=== PATIENT | female | born 1970 | race Caucasian/White ===

== ENCOUNTER 2016-07-24 15:31 | Observation (INO) | payer OTHER ==
[~2016-07-24] VITALS: Ht 162.6 cm; Wt 97.6 kg
[2016-07-24] MEDS ORDERED: NITROGLYCERIN 0.4 MG SL PER TAB CHARGE SL STA ×2 (15:50→17:44)
[2016-07-24] MEDS ORDERED: SODIUM CHLORIDE 0.9% 1000ML 1,000 ML IV STA (15:57)
[2016-07-24] MEDS ORDERED: GI COCKTAIL PO STA (15:57)
[2016-07-24] MEDS ORDERED: ALUMINUM/MAGNESIUM SUSP 30 ML UDC ONE (16:04)
[2016-07-24] MEDS ORDERED: LIDOCAINE HCL 2% VISC SOLN 20 ML UDC ONE (16:04)
--- NOTE | 2016-07-24 16:04 | DIAGNOSTIC IMAGING REPORT ---
CHEST ONE VIEW PORTABLE CLINICAL HISTORY: Chest Pain dyspnea COMPARISON STUDY: No previous studies for comparison. FINDINGS: The bones soft tissues and hemidiaphragms are normal. The cardiomediastinal silhouette is normal. The lungs are clear. The pulmonary vasculature is normal. IMPRESSION: Negative chest. Electronically signed by: Ti Upton M.D. 07/24/2016 4:02 PM Dictated Date/Time: 07/24/2016 4:02 PM
[2016-07-24 16:06] LABS: BASO % 0.5 %; BASO ABS # 0.06 K/uL (0-0.2); EOS % 4.4 %; HEMATOCRIT 37.2 % (37-47); IG% 0.2 %; LYMPH % 21.6 %; LYMPH ABS # 2.48 K/uL (1.2-3.4); MEAN CELL VOLUME 67.4 fL (80-100); MEAN CORPUSCULAR HGB CONC 31.2 g/dl (32-36); MEAN PLATELET VOLUME 9.3 fL (7.4-10.4); MONO % 5.9 %; NEUT % 67.4 %; PLATELET COUNT 387 K/uL (130-400); RED BLOOD COUNT 5.52 M/uL (4.2-5.4); WHITE BLOOD COUNT 11.47 K/uL (4.8-10.8)
[2016-07-24] MEDS ORDERED: ALPRAZOLAM 0.5 MG TAB PO STA (16:10)
--- NOTE | 2016-07-24 16:11 | EMERGENCY ROOM VISIT NOTE ---
History First contact with patient: 15:39 Chief Complaint: CHEST PAIN Stated Complaint: CHEST PAIN History of Present Illness The patient is a 46 year old female with a past medical history of diabetes, hypertension, GERD, Lap Band surgery, and RI who presents to the Emergency Room with complaints of chest pain since 10:30 this morning. The patient woke up with the pain and was made worse after eating spaghetti this morning. The pain is 8/10 when eating but 2/10 when resting, substernal, sharp in nature, does not radiate, and not worsened with movement of palpation. The sensation feels like something is stuck in her throat and is not relieved with drinking. She states that she had a heart attack back in February 2015, says the pain was worse at that point in time and also radiated to the back. She does not recall why they diagnosed her with a heart attack, she did not have a heart catheterization, and was told by a multi care technician that she was fine. She says she is nauseous but that may be related to anxiety or her lap band that frequently makes her nauseous. She denies fever, headache, diarrhea, abdominal pain, shoulder pain, vomiting, numbness, or tingling. Review of Systems See HPI for pertinent positives and negatives. A total of ten systems were reviewed and were otherwise negative. Past Medical/Surgical History Medical Problems: (1) Diabetes mellitus (2) GERD (gastroesophageal reflux disease) Social History Smoking Status: Current Every Day Smoker Current/Historical Medications Scheduled Acyclovir (Acyclovir), 400 MG PO DAILY Amitriptyline Hcl (Elavil), 75 MG PO HS Atorvastatin (Lipitor), 40 MG PO QAM Cevimeline Hcl (Cevimeline Hcl), 30 MG PO TID Estrogens, Conjugated (Premarin), 0.625 MG PO QPM Fluticasone Propionate (Nasal) (Flonase Allergy Relief), 1 SPRAY NA DAILY Insulin Isophan/Regular (Humulin 70/30), 15 UNITS SC QAM Insulin Isophan/Regular (Humulin 70/30), 25 UNITS SC QPM Lorazepam (Ativan), 0.5 MG PO BID Pantoprazole (Protonix), 40 MG PO DAILY Scheduled PRN Hydrocodone/Acetaminophen 7.5MG/325MG ([place] 7.5MG/325MG), 1 TAB PO TID PRN for Pain Ondansetron Hcl (Zofran), 4 MG PO Q6 PRN for Nausea Promethazine (Phenergan Suppository), 12.[address] DAILY PRN for Nausea Allergies Coded Allergies: Celecoxib (Unverified Allergy, Unknown, SOB/CHEST PAIN, 07/24/16) Chlordiazepoxide (Unverified Allergy, Unknown, UNKNOWN, 07/24/16) Iodinated Diagnostic Agents (Unverified Allergy, Unknown, VOMIT, 07/24/16) Lisinopril (Unverified Allergy, Unknown, COUGH, 07/24/16) Physical Exam Vital Signs Date Time Temp Pulse Resp B/P Pulse Ox O2 Delivery O2 Flow Rate FiO2 07/24/16 18:01 103 18 125/83 93 Room Air 07/24/16 16:34 111 18 142/85 96 Room Air 07/24/16 16:20 108 18 148/87 97 Room Air 07/24/16 16:05 106 07/24/16 15:49 Room Air 07/24/16 15:35 36.9 116 20 139/83 97 Room Air Physical Exam GENERAL: Awake, alert, well-appearing, in mild distress HENT: Normocephalic, atraumatic. Oropharynx unremarkable. EYES: Normal conjunctiva. Sclera non-icteric. NECK: Supple. No nuchal rigidity. No JVD RESPIRATORY: Clear to auscultation. CARDIAC: Tachycardic, normal rhythm. Extremities warm and well perfused. Pulses equal. ABDOMEN: Soft, non-distended. No tenderness to palpation. No rebound or guarding. No masses. RECTAL: Deferred. MUSCULOSKELETAL: Chest examination reveals no tenderness. The back is symmetrical on inspection without obvious abnormality. There is no CVA tenderness to palpation. No joint edema. LOWER EXTREMITIES: Calves are equal size bilaterally and non-tender. No edema. No discoloration. NEURO: Normal sensorium. No sensory or motor deficits noted. SKIN: No rash or jaundice noted. Medical Decision & Procedures Laboratory Results 07/24/16 15:49 Red Blood Count 5.52, Mean Corpuscular Volume 67.4, Mean Corpuscular Hemoglobin 21.0, Mean Corpuscular Hemoglobin Concent 31.2, Mean Platelet Volume 9.3, Neutrophils (%) (Auto) 67.4, Lymphocytes (%) (Auto) 21.6, Monocytes (%) (Auto) 5.9, Eosinophils (%) (Auto) 4.4, Basophils (%) (Auto) 0.5, Neutrophils # (Auto) 7.72, Lymphocytes # (Auto) 2.48, Monocytes # (Auto) 0.68, Eosinophils # (Auto) 0.51, Basophils # (Auto) 0.06 07/24/16 15:49 Test 07/24/16 15:49 07/24/16 17:50 White Blood Count 11.47 K/uL (4.8-10.8) Red Blood Count 5.52 M/uL (4.2-5.4) Hemoglobin 11.6 g/dL (12.0-16.0) Hematocrit 37.2 % (37-47) Mean Corpuscular Volume 67.4 fL (80-100) Mean Corpuscular Hemoglobin 21.0 pg (25-34) Mean Corpuscular Hemoglobin Concent 31.2 g/dl (32-36) Platelet Count 387 K/uL (130-400) Mean Platelet Volume 9.3 fL (7.4-10.4) Neutrophils (%) (Auto) 67.4 % Lymphocytes (%) (Auto) 21.6 % Monocytes (%) (Auto) 5.9 % Eosinophils (%) (Auto) 4.4 % Basophils (%) (Auto) 0.5 % Neutrophils # (Auto) 7.72 K/uL (1.4-6.5) Lymphocytes # (Auto) 2.48 K/uL (1.2-3.4) Monocytes # (Auto) 0.68 K/uL (0.11-0.59) Eosinophils # (Auto) 0.51 K/uL (0-0.5) Basophils # (Auto) 0.06 K/uL (0-0.2) RDW Standard Deviation 35.0 fL (36.4-46.3) RDW Coefficient of Variation 14.4 % (11.5-14.5) Immature Granulocyte % (Auto) 0.2 % Immature Granulocyte # (Auto) 0.02 K/uL (0.00-0.02) Microcytosis PRESENT D-Dimer 450 ug/L FEU (0-500) Anion Gap 7.0 mmol/L (3-11) Estimated GFR () 104.8 Estimated GFR (Non- 90.4 BUN/Creatinine Ratio 10.9 (10-20) Calcium Level 8.3 mg/dl (8.5-10.1) Total Bilirubin 0.2 mg/dl (0.2-1) Direct Bilirubin < 0.1 mg/dl (0-0.2) Aspartate Amino Transf (AST/SGOT) 10 U/L (15-37) Alanine Aminotransferase (ALT/SGPT) 24 U/L (12-78) Alkaline Phosphatase 128 U/L (45-117) Total Protein 7.0 gm/dl (6.4-8.2) Albumin 3.7 gm/dl (3.4-5.0) Lipase 259 U/L (73-393) Bedside Troponin I 0.000 ng/ml (0-0.045) Medications Administered Medications (Trade) Dose Ordered Sig/Mark Route Start Time Stop Time Status Last Admin Dose Admin Nitroglycerin 0.4 mg 0.4 mg PRN STAT SL 07/24/16 15:50 07/24/16 15:53 DC 07/24/16 16:32 0.4 MG Sodium Chloride (Nss 1000ml) 1,000 ml @ 999 mls/hr Q1H1M STAT IV 07/24/16 15:57 07/24/16 16:57 DC 07/24/16 16:20 999 MLS/HR Al Hydroxide/Mg Hydroxide (Maalox Susp) 30 ml STK-MED ONCE .ROUTE 07/24/16 16:04 07/24/16 16:05 DC 07/24/16 16:11 30 ML Lidocaine HCl (Viscous Lidocaine 2% Soln) 20 ml STK-MED ONCE .ROUTE 07/24/16 16:04 07/24/16 16:05 DC 07/24/16 16:11 10 ML Alprazolam (Xanax Tab) 0.5 mg NOW STAT PO 07/24/16 16:10 07/24/16 16:12 DC 07/24/16 16:20 0.5 MG Nitroglycerin (Nitrostat Tab) 0.4 mg NOW STAT SL 07/24/16 17:44 07/24/16 17:46 DC 07/24/16 17:52 0.4 MG Medical Decision Patient is a 46 year old female that presents with chest pain. Etiologies such as cardiac ischemia, aortic dissection, pulmonary embolism, pneumonia, pneumothorax, musculoskeletal, infections, gastrointestinal, as well as others were entertained. Ordered EKG, Troponin, CBC, CMP, LFT, Lipase Gave patient Sublingual NG as well as a GI Cocktail Revisited the patient at 4:49 at which time she states that her chest pain has improved. Notified patient of negative Troponin and Chest Xray 5:35: Patient complains of continued chest pain so ordered another EKG and SL Nitroglycerin After giving patient SL NTG patient states that chest pain has improved from 4/ 10 at rest to 1/10, and pain with eating is now a 5/10 (was 8/10 prior) Due to continued chest pain developed in ED, improvement with NTG, and history of prior RI decided to consult inpatient medicine for admission. Discussed case with Dr. Borjas who agreed to see patient. Impression Primary Impression: Substernal chest pain Additional Impressions: History of myocardial infarction GERD (gastroesophageal reflux disease) Departure Information Dispostion Being Evaluated By Hospitalist Condition GOOD Patient Instructions My [facility] Problem Qualifiers Additional Impressions: GERD (gastroesophageal reflux disease) Esophagitis presence: esophagitis presence not specified Qualified Codes: K21.9 - Gastro-esophageal reflux disease without esophagitis
[2016-07-24 16:30] LABS: ALT/SGPT 24 U/L (12-78); AST/SGOT 10 U/L (15-37); BLOOD UREA NITROGEN 9 mg/dl (7-18); BUN/CREATININE RATIO 10.9 (10-20); CALCIUM 8.3 mg/dl (8.5-10.1); CARBON DIOXIDE 28 mmol/L (21-32); CHLORIDE 107 mmol/L (98-107); CREATININE 0.79 mg/dl (0.60-1.20); GLUCOSE 196 mg/dl (70-99); POTASSIUM 3.9 mmol/L (3.5-5.1); SODIUM 142 mmol/L (136-145)
[2016-07-24 16:35] LABS: ALKALINE PHOSPHATASE 128 U/L (45-117)
[2016-07-24] MEDS ORDERED: PROM5SUP2 PR (16:41)
[2016-07-24] MEDS ORDERED: ONDA4TAB46 PO (16:41)
[2016-07-24] MEDS ORDERED: PRM625 PO (16:41)
[2016-07-24] MEDS ORDERED: FLUT0.15 (16:41)
[2016-07-24] MEDS ORDERED: ATOR-24 PO (16:41)
[2016-07-24] MEDS ORDERED: AMT50 PO (16:41)
[2016-07-24] MEDS ORDERED: CEVI1CAP PO (16:41)
[2016-07-24] MEDS ORDERED: ZVR400 PO (16:41)
[2016-07-24] MEDS ORDERED: LORA-741 PO (16:41)
[2016-07-24] MEDS ORDERED: HYDR-3983 PO (16:41)
[2016-07-24] MEDS ORDERED: PANT40TA PO (16:41)
[2016-07-24] MEDS ORDERED: INSU1INJ SC ×2 (16:41)
[2016-07-24 17:14] LABS: COMPLETE YES; MICROCYTOSIS PRESENT
[2016-07-24] MEDS ORDERED: POLYETHYLENE (MIRALAX) 17 GM PACK PO PRN (19:00)
[2016-07-24] MEDS ORDERED: HYDROCODONE/ACETAMINOPHEN 7.5/325MG TAB PO PRN (19:00)
[2016-07-24] MEDS ORDERED: ONDANSETRON 4 MG TAB PO PRN (19:00)
[2016-07-24] MEDS ORDERED: ALUMINUM/MAGNESIUM/SIMETH (MAALOX MAX) 30 ML UDC PO PRN (19:00)
[2016-07-24] MEDS ORDERED: NITROGLYCERIN 0.4 MG SL PER TAB CHARGE SL PRN (19:00)
[2016-07-24] MEDS ORDERED: ONDANSETRON INJ 2 MG/ML 2 ML VIAL IV PRN (19:00)
[2016-07-24] MEDS ORDERED: ACETAMINOPHEN 325 MG TAB PO PRN (19:00)
[2016-07-24] MEDS ORDERED: MAGNESIUM HYDROXIDE SUSP 30 ML UDC PO PRN (19:00)
[2016-07-24] MEDS ORDERED: IV FLUIDS COMPLETED PRN (19:15)
[2016-07-24] MEDS ORDERED: CLOPIDOGREL BISULFATE 75 MG TAB PO ONE (19:30)
[2016-07-24] MEDS ORDERED: ACETAMINOPHEN 325 MG TAB ONE (19:41)
[2016-07-24] MEDS ORDERED: IBUPROFEN 600 MG TAB ONE (19:41)
--- NOTE | 2016-07-24 19:41 | History and Physical ---
History & Physical Date & Time of Service: July 24, 2016 at 19:19 Chief Complaint: Chest Pain Primary Care Physician: Susana Neil M.D. History of Present Illness Source: patient 46 y/o f Hx DC of undetermined etiology, IDDM, HPL. Pt woke up with central CP exacerbated by eating. She describes accompanying SOB and nausea. Denies vomiting, diaphoresis, lightheadedness or radiation of the pain. States that the pain has been increasing in severity over the past few hours. Initial CP was reveived with NTG in the ER. She had 2 sets of enzymes and a normal EKG. The ER attending had intended to discharge her from the ER however she developed recurrence of CP prior to DC. The CP was not related to ingestion of food at that time. Past Medical/Surgical History Medical Problems: (1) Diabetes mellitus Status: Chronic (2) GERD (gastroesophageal reflux disease) Status: Chronic 3) Chronic pain syndrome 4) Anxiety 5) Pt states that she had an episode of CP in 2016 and presented to the ER at [place]. She was told later during a pre-op eval by a office messenger helper that she had had a minor DC at the time which was missed in the ER. She has not undergone a cath and does not know if she has a hitroy of coronary disease. 6) Partial hysterectomy 2010 due to menorrhagia 7) Thalassemia minor 8) Gastric sleeve surgery 05/22 - 30 lb weight loss since then Family History Father MVA Mother alive - thalassemia minor Social History Smoking Status: Current Every Day Smoker Allergies Coded Allergies: Celecoxib (Unverified Allergy, Unknown, SOB/CHEST PAIN, 07/24/16) Chlordiazepoxide (Unverified Allergy, Unknown, UNKNOWN, 07/24/16) Iodinated Diagnostic Agents (Unverified Allergy, Unknown, VOMIT, 07/24/16) Lisinopril (Unverified Allergy, Unknown, COUGH, 07/24/16) Home Medications Scheduled Acyclovir (Acyclovir), 400 MG PO DAILY Amitriptyline Hcl (Elavil), 75 MG PO HS Atorvastatin (Lipitor), 40 MG PO QAM Cevimeline Hcl (Cevimeline Hcl), 30 MG PO TID Estrogens, Conjugated (Premarin), 0.625 MG PO QPM Fluticasone Propionate (Nasal) (Flonase Allergy Relief), 1 SPRAY NA DAILY Insulin Isophan/Regular (Humulin 70/30), 15 UNITS SC QAM Insulin Isophan/Regular (Humulin 70/30), 25 UNITS SC QPM Lorazepam (Ativan), 0.5 MG PO BID Pantoprazole (Protonix), 40 MG PO DAILY Scheduled PRN Hydrocodone/Acetaminophen 7.5MG/325MG ([place] 7.5MG/325MG), 1 TAB PO TID PRN for Pain Ondansetron Hcl (Zofran), 4 MG PO Q6 PRN for Nausea Promethazine (Phenergan Suppository), 12.5 MG SD DAILY PRN for Nausea Review of Systems Constitutional: No chills, No fever, No sweats Eyes: No eye pain, No worsening of vision ENT: No hearing loss, No nasal symptoms, No unusual epistaxis Respiratory: + dyspnea at rest, + dyspnea on exertion, + shortness of breath, No cough, No sputum, No wheezing Cardiovascular: + chest pain, No PND, No orthopnea Abdomen: + nausea, No pain, No vomiting Musculoskeletal: No joint pain, No muscle pain Genitourinary - Female: No dysuria, No urinary frequency, No urinary urgency Neurologic: No memory loss, No paralysis, No weakness Psychiatric: No depression symptoms Endocrine: No fatigue Hematologic / Lymphatic: No abnormal bleeding/bruising Integumentary: No rash Allergic / Immunologic: No environmental allergies Physical Exam Vital Signs Date Time Temp Pulse Resp B/P Pulse Ox O2 Delivery O2 Flow Rate FiO2 07/24/16 18:01 103 18 125/83 93 Room Air 07/24/16 16:34 111 18 142/85 96 Room Air 07/24/16 16:20 108 18 148/87 97 Room Air 07/24/16 16:05 106 07/24/16 15:49 Room Air 07/24/16 15:35 36.9 116 20 139/83 97 Room Air General Appearance: WD/WN, no apparent distress Head: normocephalic, atraumatic Eyes: normal inspection, PERRL, EOMI ENT: normal ENT inspection, pharynx normal Neck: supple, no JVD Respiratory/Chest: chest non-tender, lungs clear, normal breath sounds, no respiratory distress, no accessory muscle use Cardiovascular: regular rate, rhythm, no edema, no gallop, no JVD Abdomen/GI: normal bowel sounds, non tender, soft Back: normal inspection, no CVA tenderness, no muscle spasm, normal range of motion Extremities/Musculoskelatal: normal inspection, no calf tenderness, normal capillary refill, no pedal edema, normal range of motion 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 as tested, no motor/sensory deficits, alert Skin: normal color, warm/dry, no rash Diagnostics Laboratory Results Results Past 24 Hours Test 07/24/16 15:49 07/24/16 15:53 07/24/16 17:50 Range/Units White Blood Count 11.47 4.8-10.8 K/uL Red Blood Count 5.52 4.2-5.4 M/uL Hemoglobin 11.6 12.0-16.0 g/dL Hematocrit 37.2 37-47 % Mean Corpuscular Volume 67.4 80-100 fL Mean Corpuscular Hemoglobin 21.0 25-34 pg Mean Corpuscular Hemoglobin Concent 31.2 32-36 g/dl Platelet Count 387 130-400 K/uL Mean Platelet Volume 9.3 7.4-10.4 fL Neutrophils (%) (Auto) 67.4 % Lymphocytes (%) (Auto) 21.6 % Monocytes (%) (Auto) 5.9 % Eosinophils (%) (Auto) 4.4 % Basophils (%) (Auto) 0.5 % Neutrophils # (Auto) 7.72 1.4-6.5 K/uL Lymphocytes # (Auto) 2.48 1.2-3.4 K/uL Monocytes # (Auto) 0.68 0.11-0.59 K/uL Eosinophils # (Auto) 0.51 0-0.5 K/uL Basophils # (Auto) 0.06 0-0.2 K/uL RDW Standard Deviation 35.0 36.4-46.3 fL RDW Coefficient of Variation 14.4 11.5-14.5 % Immature Granulocyte % (Auto) 0.2 % Immature Granulocyte # (Auto) 0.02 0.00-0.02 K/uL Microcytosis PRESENT D-Dimer 450 0-500 ug/L FEU Sodium Level 142 136-145 mmol/L Potassium Level 3.9 3.5-5.1 mmol/L Chloride Level 107 98-107 mmol/L Carbon Dioxide Level 28 21-32 mmol/L Anion Gap 7.0 3-11 mmol/L Blood Urea Nitrogen 9 7-18 mg/dl Creatinine 0.79 0.60-1.20 mg/dl Estimated GFR () 104.8 Estimated GFR (Non- 90.4 BUN/Creatinine Ratio 10.9 10-20 Random Glucose 196 70-99 mg/dl Calcium Level 8.3 8.5-10.1 mg/dl Total Bilirubin 0.2 0.2-1 mg/dl Direct Bilirubin < 0.1 0-0.2 mg/dl Aspartate Amino Transf (AST/SGOT) 10 15-37 U/L Alanine Aminotransferase (ALT/SGPT) 24 12-78 U/L Alkaline Phosphatase 128 45-117 U/L Total Protein 7.0 6.4-8.2 gm/dl Albumin 3.7 3.4-5.0 gm/dl Lipase 259 73-393 U/L Bedside Troponin I 0.000 0.000 0-0.045 ng/ml CXR normal Normal EKG Impression Assessment and Plan 46 y/o f Hx DC of undetermined etiology, IDDM, HPL. Pt woke up with central CP exacerbated by eating. She describes accompanying SOB and nausea. Denies vomiting, diaphoresis, lightheadedness or radiation of the pain. States that the pain has been increasing in severity over the past few hours. Initial CP was reveived with NTG in the ER. She had 2 sets of enzymes and a normal EKG. The ER attending had intended to discharge her from the ER however she developed recurrence of CP prior to DC. The CP was not related to ingestion of food at that time. 1) CP - apparent history of previous DC - pain relieved by NTG 3rd troponin pending - cont Statin - can likely schedule for outpt stress with her MD in [place] if ruled out - provided with Plavix daily as she may have an ASA sensitivity 2) DM - sliding scale provided 3) GERD - PPi ordered Full code - Lovenox prophylaxis Total time for this admit including review of labs, meds, EKG - discussion with ER attending and pt 30 min Level of Care Telemetry Resuscitation Status FULL RESUSCITATION VTE Prophylaxis VTE Risk Assessment Done? Y/N: Yes Risk Level: Low Given or contraindicated: Enoxaparin (Lovenox)SQ
[2016-07-24 20:24] VITALS: BP 151/93; PULSE 95; TEMP 36.1; O2SAT 98
[2016-07-24] MEDS: PATIENT'S HEIGHT AND/OR WEIGHT NEEDED SCH ×2 (20:50→22:36)
[2016-07-24] MEDS ORDERED: GLUCOSE 40% GEL 15 GM TUBE PO PRN (21:00)
[2016-07-24] MEDS ORDERED: DEXTROSE 50% 50 ML SYR IV PRN (21:00)
[2016-07-24] MEDS: INSULIN ASPART 100 UNITS/ML 3 ML PEN SC SCH (21:00)
[2016-07-24] MEDS ORDERED: GLUCAGON FOR INJ 1 MG VIAL SQ PRN (21:00)
[2016-07-24] MEDS ORDERED: GLUCOSE 10 TABS/TUBE PO PRN (21:00)
[2016-07-24] MEDS ORDERED: ESTROGENS, CONJUGATED 0.625 MG TAB PO SCH (21:00)
[2016-07-24] MEDS ORDERED: AMITRIPTYLINE HCL 25 MG TAB PO SCH (21:00)
[2016-07-24] MEDS: LORAZEPAM 0.5 MG TAB PO SCH (21:10)
[2016-07-24] MEDS: CEVIMELINE~ORDER AWAITING ACTION SCH (21:38)
[2016-07-24 21:59] VITALS: BP 151/93; PULSE 95; TEMP 36.1; Ht 162.6 cm; Wt 97.6 kg
--- NOTE | 2016-07-24 22:09 | EMERGENCY ROOM VISIT NOTE ---
History Report prepared by Odalis: Adelia Golden Under the Supervision of: Dr. Jae Leon M.D. First contact with patient: 15:39 Chief Complaint: ABDOMINAL PAIN Stated Complaint: CHEST PAIN History of Present Illness The patient is a 46 year old female who presents to the Emergency Room with complaints of constant low sternal pain for the past 5 hours. Her pain started this morning while she was eating spaghetti with red sauce. Her pain is constant at a 2/10 in severity, but significantly worsens with eating. When she eats her pain is an 8/10 and she describes it as sharp. She notes that she feels like something is stuck in her throat when she is trying to swallow. The patient denies her pain radiating anywhere. She also denies lightheadedness, numbness, tingling, fever, constipation, diarrhea, and shortness of breath. She was told that she had an CT at [facility] in February 2015. She is not sure why she was told this, but her computational biologist has told her that she was fine. She has never had a cardiac catheterization or any stents placed. 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 A total of 10 systems reviewed and were otherwise negative. Past Medical & Surgical Medical Problems: (1) Diabetes mellitus (2) GERD (gastroesophageal reflux disease) Family History No pertinent history stated. Social History Smoking Status: Current Every Day Smoker Current/Historical Medications Scheduled Acyclovir (Acyclovir), 400 MG PO DAILY Amitriptyline Hcl (Elavil), 75 MG PO HS Atorvastatin (Lipitor), 40 MG PO QAM Cevimeline Hcl (Cevimeline Hcl), 30 MG PO TID Estrogens, Conjugated (Premarin), 0.625 MG PO QPM Fluticasone Propionate (Nasal) (Flonase Allergy Relief), 1 SPRAY NA DAILY Insulin Isophan/Regular (Humulin 70/30), 15 UNITS SC QAM Insulin Isophan/Regular (Humulin 70/30), 25 UNITS SC QPM Lorazepam (Ativan), 0.5 MG PO BID Pantoprazole (Protonix), 40 MG PO DAILY Scheduled PRN Hydrocodone/Acetaminophen 7.5MG/325MG ([place] 7.5MG/325MG), 1 TAB PO TID PRN for Pain Ondansetron Hcl (Zofran), 4 MG PO Q6 PRN for Nausea Promethazine (Phenergan Suppository), 12.5 MG [place] DAILY PRN for Nausea Allergies Coded Allergies: Celecoxib (Verified Allergy, Unknown, SOB/CHEST PAIN, 07/24/16) Chlordiazepoxide (Verified Allergy, Unknown, UNKNOWN, 07/24/16) Iodinated Diagnostic Agents (Verified Adverse Reaction, Unknown, VOMIT, ) Lisinopril (Verified Adverse Reaction, Unknown, COUGH, 07/24/16) Physical Exam Vital Signs Date Time Temp Pulse Resp B/P Pulse Ox O2 Delivery O2 Flow Rate FiO2 07/24/16 18:01 103 18 125/83 93 Room Air 07/24/16 16:34 111 18 142/85 96 Room Air 07/24/16 16:20 108 18 148/87 97 Room Air 07/24/16 16:05 106 07/24/16 15:49 Room Air 07/24/16 15:35 36.9 116 20 139/83 97 Room Air Physical Exam GENERAL: Patient is mildly anxious appearing and in no acute distress. HEENT: No acute trauma, normocephalic atraumatic, mucous membranes moist, no nasal congestion, no scleral icterus. NECK: No stridor, no adenopathy, no meningismus, trachea is midline. LUNGS: No dyspnea. Clear to auscultation and equal bilaterally. No wheeze, no rhonchi. HEART: Mildly tachycardic rate and regular rhythm. No murmurs, rubs, gallops appreciated. ABDOMEN: Soft, nontender, bowel sounds positive, no masses appreciated, no peritonitis. BACK: No midline tenderness, no CVA tenderness EXTREMITIES: Normal motion all extremities, no cyanosis, no edema. NEUROLOGIC: Alert and oriented, no acute motor or sensory deficits, no focal weakness, cranial nerves grossly intact. SKIN: No rash, no jaundice, no diaphoresis. Medical Decision & Procedures ER Provider Diagnostic Interpretation: Radiology results and stated below per my review and radiologist interpretation: CHEST ONE VIEW PORTABLE CLINICAL HISTORY: Chest Pain dyspnea COMPARISON STUDY: No previous studies for comparison. FINDINGS: The bones soft tissues and hemidiaphragms are normal. The cardiomediastinal silhouette is normal. The lungs are clear. The pulmonary vasculature is normal. IMPRESSION: Negative chest. Electronically signed by: Ti Upton M.D. 07/24/2016 4:02 PM Dictated Date/Time: 07/24/2016 4:02 PM Laboratory Results 07/24/16 15:49 Red Blood Count 5.52, Mean Corpuscular Volume 67.4, Mean Corpuscular Hemoglobin 21.0, Mean Corpuscular Hemoglobin Concent 31.2, Mean Platelet Volume 9.3, Neutrophils (%) (Auto) 67.4, Lymphocytes (%) (Auto) 21.6, Monocytes (%) (Auto) 5.9, Eosinophils (%) (Auto) 4.4, Basophils (%) (Auto) 0.5, Neutrophils # (Auto) 7.72, Lymphocytes # (Auto) 2.48, Monocytes # (Auto) 0.68, Eosinophils # (Auto) 0.51, Basophils # (Auto) 0.06 07/24/16 15:49 Test 07/24/16 15:49 07/24/16 17:50 White Blood Count 11.47 K/uL (4.8-10.8) Red Blood Count 5.52 M/uL (4.2-5.4) Hemoglobin 11.6 g/dL (12.0-16.0) Hematocrit 37.2 % (37-47) Mean Corpuscular Volume 67.4 fL (80-100) Mean Corpuscular Hemoglobin 21.0 pg (25-34) Mean Corpuscular Hemoglobin Concent 31.2 g/dl (32-36) Platelet Count 387 K/uL (130-400) Mean Platelet Volume 9.3 fL (7.4-10.4) Neutrophils (%) (Auto) 67.4 % Lymphocytes (%) (Auto) 21.6 % Monocytes (%) (Auto) 5.9 % Eosinophils (%) (Auto) 4.4 % Basophils (%) (Auto) 0.5 % Neutrophils # (Auto) 7.72 K/uL (1.4-6.5) Lymphocytes # (Auto) 2.48 K/uL (1.2-3.4) Monocytes # (Auto) 0.68 K/uL (0.11-0.59) Eosinophils # (Auto) 0.51 K/uL (0-0.5) Basophils # (Auto) 0.06 K/uL (0-0.2) RDW Standard Deviation 35.0 fL (36.4-46.3) RDW Coefficient of Variation 14.4 % (11.5-14.5) Immature Granulocyte % (Auto) 0.2 % Immature Granulocyte # (Auto) 0.02 K/uL (0.00-0.02) Microcytosis PRESENT D-Dimer 450 ug/L FEU (0-500) Anion Gap 7.0 mmol/L (3-11) Estimated GFR () 104.8 Estimated GFR (Non- 90.4 BUN/Creatinine Ratio 10.9 (10-20) Calcium Level 8.3 mg/dl (8.5-10.1) Total Bilirubin 0.2 mg/dl (0.2-1) Direct Bilirubin < 0.1 mg/dl (0-0.2) Aspartate Amino Transf (AST/SGOT) 10 U/L (15-37) Alanine Aminotransferase (ALT/SGPT) 24 U/L (12-78) Alkaline Phosphatase 128 U/L (45-117) Total Protein 7.0 gm/dl (6.4-8.2) Albumin 3.7 gm/dl (3.4-5.0) Lipase 259 U/L (73-393) Bedside Troponin I 0.000 ng/ml (0-0.045) Laboratory results as reviewed by me. Medications Administered Medications (Trade) Dose Ordered Sig/Mark Route Start Time Stop Time Status Last Admin Dose Admin Nitroglycerin 0.4 mg 0.4 mg PRN STAT SL 07/24/16 15:50 07/24/16 15:53 DC 07/24/16 16:32 0.4 MG Sodium Chloride (Nss 1000ml) 1,000 ml @ 999 mls/hr Q1H1M STAT IV 07/24/16 15:57 07/24/16 16:57 DC 07/24/16 16:20 999 MLS/HR Al Hydroxide/Mg Hydroxide (Maalox Susp) 30 ml STK-MED ONCE .ROUTE 07/24/16 16:04 07/24/16 16:05 DC 07/24/16 16:11 30 ML Lidocaine HCl (Viscous Lidocaine 2% Soln) 20 ml STK-MED ONCE .ROUTE 07/24/16 16:04 07/24/16 16:05 DC 07/24/16 16:11 10 ML Alprazolam (Xanax Tab) 0.5 mg NOW STAT PO 07/24/16 16:10 07/24/16 16:12 DC 07/24/16 16:20 0.5 MG Nitroglycerin (Nitrostat Tab) 0.4 mg NOW STAT SL 07/24/16 17:44 07/24/16 17:46 DC 07/24/16 17:52 0.4 MG ECG Indication: chest pain Rate (beats per minute): 112 Rhythm: sinus tachycardia Findings: no acute ischemic change, no ectopy ED Course 1539: The patient was evaluated in room B5. A complete history and physical exam was performed. 1550: Nitroglycerin 0.4 mg SL 1557: NSS 1000 ml @ 999 mls/hr IV, GI Cocktail 24 ml PO 1608: The patient is requesting Xanax. 1610: Xanax tab 0.5 mg PO 1644: I reassessed the patient. She is feeling better and resting comfortably. 1744: Nitroglycerin 0.4 mg SL 1755: I reassessed the patient at this time. She is feeling better and resting comfortably. I discussed the results and treatment plan with the patient. I answered all pertaining questions that she had. She expressed understanding and verbalized agreement. 1810: I spoke with Dr. Borjas. We discussed the patients case and the patient will be evaluated by the [facility] for further management. Medical Decision Differential: Cholecystitis, Gallbladder disfunction, Hepatic Disfunction, Gastritis/PUD, Pancreatitis, ACS, Aortic Pathology, amongst other pathologies entertained. 46 yr old female with DMII, HTN and she reports previous CT though denies previous CATH/Stenting. Notes similar pain to reported previous CT though without radiation to back. Resolved with SLNTG. Also given GI Cocktail given Gerd history. Initial EKG/Trop negative. She was monitored for 90 and repeat EKG/Trop done which were unremarkable. During repeat she developed return of pain and given SLNTG with resolution of pain again. Given recurrence of pain and her reported history I do not feel she meets criteria for outpatient work- up at this time and thus have asked hospitalist to evaluate for further treatment/management. Consults Time Called: 1801 Consulting Physician: Dr. Borjas Returned Call: [address] Borjas. We discussed the patients case and the patient will be evaluated by the [facility] for further management. Impression Primary Impression: Substernal chest pain Scribe Attestation The scribe's documentation has been prepared under my direction and personally reviewed by me in its entirety. I confirm that the note above accurately reflects all work, treatment, procedures, and medical decision making performed by me. Departure Information Dispostion Being Evaluated By Hospitalist Patient Instructions [facility]
[2016-07-24 22:26] LABS: INR 1.1 (0.9-1.1); PROTHROMBIN TIME (PATIENT) 11.3 SECONDS (9.0-12.0)
[2016-07-24 23:11] VITALS: BP 132/87; PULSE 97; TEMP 36.4; O2SAT 95
[2016-07-25] VITALS: O2SAT 97
[2016-07-25 04:00] VITALS: O2SAT 97
[2016-07-25 04:07] VITALS: BP 139/87; PULSE 94; TEMP 36.4; O2SAT 95
[2016-07-25] MEDS: INSULIN ASPART 100 UNITS/ML 3 ML PEN SC SCH (06:30)
[2016-07-25 07:43] VITALS: BP 146/98; PULSE 88; TEMP 36.3; O2SAT 98
[2016-07-25] MEDS: LORAZEPAM 0.5 MG TAB PO SCH (07:51)
[2016-07-25] MEDS ORDERED: INSULIN HUMAN 70% NPH/30% REGULAR SC SCH (08:00)
[2016-07-25] MEDS: CEVIMELINE~ORDER AWAITING ACTION SCH (08:00)
[2016-07-25] MEDS ORDERED: ENOXAPARIN 40 MG/0.4 ML SYR SC SCH (08:00)
[2016-07-25] MEDS ORDERED: FLUTICASONE PROPIONATE NA SPR 16 GM BTL SCH (09:00)
[2016-07-25] MEDS ORDERED: ACYCLOVIR 400 MG TAB PO SCH (09:00)
[2016-07-25] MEDS ORDERED: PANTOprazole SOD 40 MG TAB PO SCH (09:00)
[2016-07-25] MEDS ORDERED: ATORVASTATIN 20 MG TAB PO SCH (09:00)
[2016-07-25] MEDS ORDERED: CLOPIDOGREL BISULFATE 75 MG TAB PO SCH (09:00)
--- NOTE | 2016-07-25 09:51 | Discharge Instructions ---
Discharge Instructions Date of Service July 25, 2016. Admission Reason for Admission: Substernal Chest Pain Discharge Discharge Diagnosis / Problem: Chest pain Discharge Goals Goal(s): Decrease discomfort, Improve function, Diagnostic testing, Therapeutic intervention Activity Recommendations Activity Limitations: resume your previous activity (as tolerated) . Instructions / Follow-Up Instructions / Follow-Up You were admitted to the hospital for overnight observation after presenting to the ER with chest pain. You received a cardiac work up with included EKGs, cardiac monitoring on the telemetry unit, and serial cardiac enzymes. This work up was all normal. As you are no longer experiencing symptoms and your cardiac work up has been normal, you are now medically stable for discharge to home. Medications: *No changes have been made to your medications. Please continue your home medications as prescribed. Follow up: *Our Nurse Navigator will set you up with follow up cardiology, primary care, and gastroenterology appointments in the next week. Please be sure to make all of these appointments. Your golf teacher may decide to do a follow up stress test for further cardiac work up. Due to the nature of your chest pain, your director of global marketing may decide to do some work up as well as there may be some esophageal dysfunction that is contributing. Please seek medical attention if you experience fevers, chills, sweats, chest pain, shortness of breath, worsening nausea, vomiting, severe abdominal pain, lightheadedness, loss of consciousness, changes in vision, numbness or tingling. Current Hospital Diet Patient's current hospital diet: AHA Diet (Heart Healthy), Diabetes Type 2 Diet Discharge Diet Recommended Diet: AHA Diet (Heart Healthy), Diabetes Type 2 Diet Pending Studies Studies pending at discharge: no Medical Emergencies . Who to Call and When: Medical Emergencies: If at any time you feel your situation is an emergency, please call 911 immediately. . Non-Emergent Contact Non-Emergency issues call your: Primary Care Provider, Outside Sales Manager, Sheet Taker Call Non-Emergent contact if: you have a fever, your pain is not controlled, your pain is worsening, your pain is unusual for you, your pain is concerning you, you have any medication questions . Past History Medical & Surgical History: (1) Substernal chest pain . "Provider Documentation" section prepared by Leslye Maria. . VTE Core Measure Inpt VTE Proph given/why not?: Enoxaparin (Lovenox)SQ
[2016-07-25 10:10] VITALS: BP 146/98; PULSE 88; TEMP 36.3; O2SAT 98
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
== END 2016-07-25 11:43 | disposition home or self-care (01) ==
LOC: ENRESERVTM → ENRESERVDT → C.EDB 15:33 → C.MED 18:55
PROVIDERS: ADMIT Internal Medicine; ATTEND Internal Medicine
DX: R07.89 Other chest pain (principal); K21.9 Gastro-esophageal reflux disease without esophagitis; E10.9 Type 1 diabetes mellitus without complications; E78.5 Hyperlipidemia, unspecified; F41.9 Anxiety disorder, unspecified; G89.4 Chronic pain syndrome; I25.2 Old myocardial infarction; D56.3 Thalassemia minor; Z79.4 Long term (current) use of insulin; Z79.899 Other long term (current) drug therapy; F17.210 Nicotine dependence, cigarettes, uncomplicated

== ENCOUNTER 2016-08-08 10:37 | Emergency (ER) | payer OTHER ==
[~2016-08-08] VITALS: Ht 162.6 cm; Wt 97.0 kg
[~2016-08-08 10:37] MED LIST: AMT50 PO; ATOR-24 PO; CEVI1CAP PO; FLUT0.15; HYDR-3983 PO; INSU1INJ SC; LORA-741 PO; ONDA4TAB46 PO; PANT40TA PO; PRM625 PO; PROM5SUP2 PR; ZVR400 PO
[2016-08-08 10:44] VITALS: Ht 162.6 cm; Wt 97.0 kg
[2016-08-08] MEDS ORDERED: SODIUM CHLORIDE 0.9% 1000ML 1,000 ML IV STA ×2 (10:54→12:27)
--- NOTE | 2016-08-08 11:00 | EMERGENCY ROOM VISIT NOTE ---
History Report prepared by Odalis: Steve Wagner Under the Supervision of: Dr. Nay Sarkar D.O. First contact with patient: 10:41 Chief Complaint: SYNCOPE Stated Complaint: LEG CRAMPS/SYNCOPE History of Present Illness The patient is a 46 year old female who presents to the Emergency Room with an episode of syncope that occurred just prior to arrival. The patient was experiencing severe bilateral leg cramps this morning when she woke up. She experiences leg cramps commonly but they were much worse this morning. The patient felt fine when she went to bed last night. The patient stood up to stretch and became lightheaded, which is the last thing she remembers. Per significant other, the patient passed out, fell and hit her head between a wall and the door. The significant other notes that the patient's eyes were open but she was unresponsive. She was not convulsing. The patient remembers being in the ambulance en route to the ED but her memory was still hazy. Her leg cramps are now resolved. The patient currently has a headache. The patient has been having trouble taking a deep breath. She denies neck or back pain, and does not believe that she injured anything else when she fell. The patient has not been experiencing any recent fevers, chills, illness, blurry or double vision, nausea , chest pain, palpitations, leg swelling, numbness or tingling. The patient has never had an episode like this before. The patient was recently admitted to the hospital for chest pain. She is scheduled for a stress test next week. She is s/ p gastric sleeve surgery, and denies any complications. Source of History: patient Onset: just prior to arrival Position: other (global) Quality: other (syncope) Timing: resolved Associated Symptoms: + LOC, + headache, + SOB, No fevers, No chills, No neck pain, No chest pain, No nausea, No back pain, No weakness, No numbness Review of Systems See HPI for pertinent positives & negatives. A total of 10 systems reviewed and were otherwise negative. Past Medical & Surgical Medical Problems: (1) Diabetes mellitus (2) GERD (gastroesophageal reflux disease) Surgical Problems: (1) S/P laparoscopic sleeve gastrectomy Family History No pertinent family history Social History Smoking Status: Current Every Day Smoker Current/Historical Medications Scheduled Acyclovir (Acyclovir), 400 MG PO DAILY Amitriptyline Hcl (Elavil), 75 MG PO HS Atorvastatin (Lipitor), 40 MG PO QAM Cevimeline Hcl (Cevimeline Hcl), 30 MG PO TID Estrogens, Conjugated (Premarin), 0.625 MG PO QPM Fluticasone Propionate (Nasal) (Flonase Allergy Relief), 1 SPRAY NA DAILY Insulin Isophan/Regular (Humulin 70/30), 15 UNITS SC QAM Insulin Isophan/Regular (Humulin 70/30), 25 UNITS SC QPM Lorazepam (Ativan), 0.5 MG PO BID Pantoprazole (Protonix), 40 MG PO DAILY Scheduled PRN Hydrocodone/Acetaminophen 7.5MG/325MG ([place] 7.5MG/325MG), 1 TAB PO TID PRN for Pain Ondansetron Hcl (Zofran), 4 MG PO Q6 PRN for Nausea Promethazine (Phenergan Suppository), 12.5 MG IA DAILY PRN for Nausea Allergies Coded Allergies: Celecoxib (Verified Allergy, Unknown, SOB/CHEST PAIN, 08/08/16) Chlordiazepoxide (Verified Allergy, Unknown, UNKNOWN, 08/08/16) Iodinated Diagnostic Agents (Verified Adverse Reaction, Unknown, VOMIT, 08/08/16) Lisinopril (Verified Adverse Reaction, Unknown, COUGH, 08/08/16) Physical Exam Vital Signs Date Time Temp Pulse Resp B/P (MAP) Pulse Ox O2 Delivery O2 Flow Rate FiO2 08/08/16 14:44 36.7 79 18 124/99 97 08/08/16 14:33 79 18 124/99 97 Room Air 08/08/16 13:57 86 18 98 08/08/16 13:52 88 17 98 08/08/16 13:47 85 14 97 08/08/16 13:42 90 12 99 08/08/16 13:40 87 08/08/16 13:37 87 16 98 08/08/16 13:32 99 25 166/97 08/08/16 13:27 90 20 08/08/16 13:22 90 21 97 08/08/16 13:17 91 16 98 08/08/16 13:12 93 21 99 08/08/16 13:09 148/87 08/08/16 12:27 84 15 98 08/08/16 12:22 88 25 98 08/08/16 12:17 86 16 94 08/08/16 12:12 84 12 97 08/08/16 12:07 84 14 93 08/08/16 12:02 84 12 96 08/08/16 12:01 138/88 08/08/16 11:57 87 19 95 08/08/16 11:56 128/93 08/08/16 11:27 83 18 98 08/08/16 11:22 83 13 08/08/16 11:17 81 17 08/08/16 11:02 83 18 95 08/08/16 10:57 87 13 95 08/08/16 10:52 83 15 94 08/08/16 10:47 82 19 96 08/08/16 10:44 36.7 83 14 148/98 96 Room Air 08/08/16 10:43 84 08/08/16 10:42 85 23 94 08/08/16 10:40 148/98 Physical Exam GENERAL: alert, well appearing, well nourished, tearful on exam, non-toxic EYE EXAM: normal conjunctiva. OROPHARYNX: no exudate, no erythema, lips, buccal mucosa, and tongue normal and mucous membranes are moist NECK: supple, no nuchal rigidity, no adenopathy, non-tender LUNGS: Clear to auscultation. Normal chest wall mechanics HEART: no murmurs, S1 normal and S2 normal ABDOMEN: abdomen soft, non-tender, normo-active bowel sounds, no masses, no rebound or guarding. BACK: Back is symmetrical on inspection and there is no deformity, no midline tenderness, no CVA tenderness. SKIN: no rashes and no bruising UPPER EXTREMITIES: upper extremities are grossly normal. LOWER EXTREMITIES: No pitting edema. NEURO EXAM: Normal sensorium, cranial nerves II-XII grossly intact, normal speech, no gross weakness of arms, no gross weakness of legs. Gross sensation intact. Medical Decision & Procedures ER Provider Diagnostic Interpretation: Radiology results have been interpreted by the radiologist and reviewed by me. CT OF THE CERVICAL SPINE CLINICAL HISTORY: Neck pain status post trauma COMPARISON STUDY: No previous studies for comparison. CT DOSE: TECHNIQUE: CT scan of the cervical spine was performed from the skull base to the thoracic inlet. Images are reviewed in the axial, sagittal, and coronal planes. IV contrast was not administered for this examination. FINDINGS: There is a 9 mm left lobe thyroid nodule. There is no pneumothorax. There is a reversal of the normal cervical lordosis. No acute fractures or traumatic subluxations are visualized. There are multilevel degenerative changes IMPRESSION: No evidence of acute fracture or traumatic subluxation. Electronically signed by: Deonte Barajas M.D. 08/08/2016 11:56 AM Dictated Date/Time: 08/08/2016 11:52 AM CHEST ONE VIEW PORTABLE HISTORY: Syncope. Short of breath. COMPARISON: None. FINDINGS: The lungs are clear. Cardiac silhouette is normal in size. No pleural effusions. No pneumothorax. Mild S-shaped scoliosis. IMPRESSION: No acute process. Electronically signed by: Haroon Garnica M.D. 08/08/2016 11:15 AM Dictated Date/Time: 08/08/2016 11:[address] HEAD WITHOUT CONTRAST (CT) CLINICAL HISTORY: Syncope. Head trauma. Pain. COMPARISON STUDY: No previous studies for comparison. TECHNIQUE: Axial CT of the brain is performed from the vertex to the skull base. IV contrast was not administered for this examination. CT DOSE: 977.48 mGy.cm FINDINGS: No intra or extra-axial mass lesions are visualized. There is no CT evidence of acute cortical infarction. There is no evidence of midline shift. There is no acute hemorrhage. No calvarial fractures are visualized. There is no evidence of pathologic ventricular dilatation. There is no evidence of acute sinusitis IMPRESSION: Normal noncontrast head CT for age Electronically signed by: Deonte Barajas M.D. 08/08/2016 11:52 AM Dictated Date/Time: 08/08/2016 11:51 AM Laboratory Results 08/08/16 11:20 Red Blood Count 5.10, Mean Corpuscular Volume 67.1, Mean Corpuscular Hemoglobin 21.4, Mean Corpuscular Hemoglobin Concent 31.9, Mean Platelet Volume 8.9, Neutrophils (%) (Auto) 62.9, Lymphocytes (%) (Auto) 24.9, Monocytes (%) (Auto) 6.7, Eosinophils (%) (Auto) 4.7, Basophils (%) (Auto) 0.7, Neutrophils # (Auto) 4.81, Lymphocytes # (Auto) 1.90, Monocytes # (Auto) 0.51, Eosinophils # (Auto) 0.36, Basophils # (Auto) 0.05 08/08/16 11:20 Test 08/08/16 10:51 08/08/16 11:18 08/08/16 11:20 Bedside Glucose 158 mg/dl (70-90) Urine Color DK YELLOW Urine Appearance CLEAR (CLEAR) Urine pH 5.0 (4.5-7.5) Urine Specific [place] 1.034 (1.000-1.030) Urine Protein NEG (NEG) Urine Glucose (UA) NEG (NEG) Urine Ketones TRACE (NEG) Urine Occult Blood NEG (NEG) Urine Nitrite NEG (NEG) Urine Bilirubin NEG (NEG) Urine Urobilinogen NEG (NEG) Urine Leukocyte Esterase NEG (NEG) White Blood Count 7.64 K/uL (4.8-10.8) Red Blood Count 5.10 M/uL (4.2-5.4) Hemoglobin 10.9 g/dL (12.0-16.0) Hematocrit 34.2 % (37-47) Mean Corpuscular Volume 67.1 fL (80-100) Mean Corpuscular Hemoglobin 21.4 pg (25-34) Mean Corpuscular Hemoglobin Concent 31.9 g/dl (32-36) Platelet Count 319 K/uL (130-400) Mean Platelet Volume 8.9 fL (7.4-10.4) Neutrophils (%) (Auto) 62.9 % Lymphocytes (%) (Auto) 24.9 % Monocytes (%) (Auto) 6.7 % Eosinophils (%) (Auto) 4.7 % Basophils (%) (Auto) 0.7 % Neutrophils # (Auto) 4.81 K/uL (1.4-6.5) Lymphocytes # (Auto) 1.90 K/uL (1.2-3.4) Monocytes # (Auto) 0.51 K/uL (0.11-0.59) Eosinophils # (Auto) 0.36 K/uL (0-0.5) Basophils # (Auto) 0.05 K/uL (0-0.2) RDW Standard Deviation 35.1 fL (36.4-46.3) RDW Coefficient of Variation 14.3 % (11.5-14.5) Immature Granulocyte % (Auto) 0.1 % Immature Granulocyte # (Auto) 0.01 K/uL (0.00-0.02) Red Blood Cell Morphology Unremarkable Anion Gap 4.0 mmol/L (3-11) Est Creatinine Clear Calc Drug Dose 101.7 ml/min Estimated GFR () 104.8 Estimated GFR (Non- 90.4 BUN/Creatinine Ratio 19.8 (10-20) Calcium Level 8.4 mg/dl (8.5-10.1) Magnesium Level 2.0 mg/dl (1.8-2.4) Total Bilirubin 0.4 mg/dl (0.2-1) Aspartate Amino Transf (AST/SGOT) 15 U/L (15-37) Alanine Aminotransferase (ALT/SGPT) 20 U/L (12-78) Alkaline Phosphatase 120 U/L (45-117) Troponin I < 0.015 ng/ml (0-0.045) Total Protein 7.1 gm/dl (6.4-8.2) Albumin 3.8 gm/dl (3.4-5.0) Globulin 3.3 gm/dl (2.5-4.0) Albumin/Globulin Ratio 1.2 (0.9-2) Thyroid Stimulating Hormone (TSH) 3.790 uIu/ml (0.300-4.500) Human Chorionic Gonadotropin, Qual NEG (NEG) Laboratory results per my review. Medications Administered Medications (Trade) Dose Ordered Sig/Mark Route Start Time Stop Time Status Last Admin Dose Admin Sodium Chloride 1,000 ml @ 999 mls/hr Q1H1M STAT IV 08/08/16 10:54 08/08/16 11:54 DC 08/08/16 10:54 999 MLS/HR Sodium Chloride 1,000 ml @ 999 mls/hr Q1H1M STAT IV 08/08/16 12:27 08/08/16 13:27 DC 08/08/16 12:27 999 MLS/HR Acetaminophen (Tylenol Tab) 1,000 mg NOW STAT PO 08/08/16 13:10 08/08/16 13:12 DC 08/08/16 13:25 1,000 MG ECG Indication: syncope Rate (beats per minute): 83 Rhythm: sinus rhythm Findings: Q waves (V2 only), no acute ischemic change, other (normal axis, normal intervals) ED Course 1044: The patient was evaluated in room C10. A complete history and physical exam was performed. 1054: NSS 1000 ml @ 999 mls/hr. 1227: NSS 1000 ml @ 999 mls/hr. 1230: Reassessed the patient. She looks and feels better. Updated her on the results. 1310: Tylenol 1000 mg PO. 1426: The patient is feeling better. I discussed everything with her and she is comfortable with going home. Medical Decision Differential diagnosis: Etiologies such as vasovagal event, infection, hypoglycemia, electrolyte abnormalities, cardiac sources, intracerebral event, toxicologic, neurologic, as well as others were entertained. Medication Reconciliation: I attest that I have personally reviewed the patient' s current medication list. Blood pressure screening: Patient was found to have normal blood pressure on screening and does not require follow-up. Patient improved here, no recurrent syncope, unable to ambulate with a steady gait, tolerate by mouth at bedside. Given patient's history, patient observed for several hours. No dysrhythmias noted on telemetry and vital signs otherwise stable. Abs reassuring, and imaging negative for additional etiology or joint medic injury. Patient metastases to not drinking much water within the last 36 hours due to moving. Discussed that this may have been the reason for the worsening leg pain and cramps. Patient states she felt markedly improved following IV fluids here. Patient did have prodromal symptoms of lightheadedness prior to episode of syncope, likely orthostatic as well as vasovagal in nature given both dehydration as well as severe pain. Doubt acute cardiac etiology, and patient scheduled for close follow-up as an outpatient next week. Doubt acute hypoglycemia, no evidence of seizure-like activity, doubt medication reaction, or occult infection, doubt vascular etiology, CVA. Discussed mild anemia, and close follow-up with family doctor, doubt this is the acute reason for events this morning. Discussed with patient symptoms to watch and return for, need for close follow-up with family doctor, adequate hydration. Discussed that she has any new or recurrent symptoms, she is return to the ER immediately for additional evaluation and possible admission. Impression Primary Impression: Syncope Additional Impressions: CHI (closed head injury) Dehydration Scribe Attestation The scribe's documentation has been prepared under my direction and personally reviewed by me in its entirety. I confirm that the note above accurately reflects all work, treatment, procedures, and medical decision making performed by me. Departure Information Dispostion Home / Self-Care Referrals Siripala,Duminda S M.D. (PCP) Forms HOME CARE DOCUMENTATION FORM, IMPORTANT VISIT INFORMATION Patient Instructions My [facility] Additional Instructions Please continue taking her regular medications as prescribed. Please make sure you're drinking plenty of water to stay well-hydrated. Please continue checking her blood sugar daily to monitor for any changes. Please follow-up with her family doctor as a precaution given the episode of passing out today. If you develop any recurrent episodes of dizziness or lightheadedness or blackout, develop chest pains, trouble breathing, worsening headaches, vision changes, nausea or vomiting, numbness or tingling, or you've any other new concerns, please return the emergency room. If her blood sugar drops below 70 or is greater than 300, please return the emergency room also. Problem Qualifiers Primary Impression: Syncope Syncope type: unspecified Qualified Codes: R55 - Syncope and collapse Additional Impressions: CHI (closed head injury) Encounter type: initial encounter Qualified Codes: S09.90XA - Unspecified injury of head, initial encounter
--- NOTE | 2016-08-08 11:16 | DIAGNOSTIC IMAGING REPORT ---
CHEST ONE VIEW PORTABLE HISTORY: Syncope. Short of breath. COMPARISON: None. FINDINGS: The lungs are clear. Cardiac silhouette is normal in size. No pleural effusions. No pneumothorax. Mild S-shaped scoliosis. IMPRESSION: No acute process. Electronically signed by: Haroon Garnica M.D. 08/08/2016 11:15 AM Dictated Date/Time: 08/08/2016 11:14 AM
[2016-08-08 11:30] LABS: URINE APPEARANCE CLEAR (CLEAR); URINE BILIRUBIN NEG (NEG); URINE COLOR DK YELLOW; URINE NITRITE NEG (NEG); URINE SPECIFIC GRAVITY 1.034 (1.000-1.030); UROBILINOGEN NEG (NEG); ZZUR CULT IF INDIC CLEAN CATCH NO
[2016-08-08 11:33] LABS: MANUAL MICROSCOPIC REQUIRED? NO; REVIEW REQ? NO
[2016-08-08 11:41] LABS: BASO % 0.7 %; BASO ABS # 0.05 K/uL (0-0.2); EOS % 4.7 %; HEMATOCRIT 34.2 % (37-47); IG% 0.1 %; LYMPH % 24.9 %; MEAN CELL VOLUME 67.1 fL (80-100); MEAN CORPUSCULAR HEMOGLOBIN 21.4 pg (25-34); MEAN CORPUSCULAR HGB CONC 31.9 g/dl (32-36); MEAN PLATELET VOLUME 8.9 fL (7.4-10.4); MONO % 6.7 %; NEUT % 62.9 %; PLATELET COUNT 319 K/uL (130-400); WHITE BLOOD COUNT 7.64 K/uL (4.8-10.8)
--- NOTE | 2016-08-08 11:53 | DIAGNOSTIC IMAGING REPORT ---
CT HEAD WITHOUT CONTRAST (CT) CLINICAL HISTORY: Syncope. Head trauma. Pain. COMPARISON STUDY: No previous studies for comparison. TECHNIQUE: Axial CT of the brain is performed from the vertex to the skull base. IV contrast was not administered for this examination. CT DOSE: 977.48 mGy.cm FINDINGS: No intra or extra-axial mass lesions are visualized. There is no CT evidence of acute cortical infarction. There is no evidence of midline shift. There is no acute hemorrhage. No calvarial fractures are visualized. There is no evidence of pathologic ventricular dilatation. There is no evidence of acute sinusitis IMPRESSION: Normal noncontrast head CT for age Electronically signed by: Deonte Barajas M.D. 08/08/2016 11:52 AM Dictated Date/Time: 08/08/2016 11:51 AM
--- NOTE | 2016-08-08 11:57 | DIAGNOSTIC IMAGING REPORT ---
CT OF THE CERVICAL SPINE CLINICAL HISTORY: Neck pain status post trauma COMPARISON STUDY: No previous studies for comparison. CT DOSE: TECHNIQUE: CT scan of the cervical spine was performed from the skull base to the thoracic inlet. Images are reviewed in the axial, sagittal, and coronal planes. IV contrast was not administered for this examination. FINDINGS: There is a 9 mm left lobe thyroid nodule. There is no pneumothorax. There is a reversal of the normal cervical lordosis. No acute fractures or traumatic subluxations are visualized. There are multilevel degenerative changes IMPRESSION: No evidence of acute fracture or traumatic subluxation. Electronically signed by: Deonte Barajas M.D. 08/08/2016 11:56 AM Dictated Date/Time: 08/08/2016 11:52 AM
[2016-08-08 11:58] LABS: ALT/SGPT 20 U/L (12-78); AST/SGOT 15 U/L (15-37); BLOOD UREA NITROGEN 16 mg/dl (7-18); BUN/CREATININE RATIO 19.8 (10-20); CALCIUM 8.4 mg/dl (8.5-10.1); CARBON DIOXIDE 32 mmol/L (21-32); CHLORIDE 106 mmol/L (98-107); CREATININE 0.79 mg/dl (0.60-1.20); GLUCOSE 148 mg/dl (70-99); POTASSIUM 3.4 mmol/L (3.5-5.1); SODIUM 142 mmol/L (136-145)
[2016-08-08 12:07] LABS: ALB/GLOB RATIO 1.2 (0.9-2); ALKALINE PHOSPHATASE 120 U/L (45-117)
[2016-08-08 12:10] LABS: COMPLETE YES
[2016-08-08 12:20] LABS: PREG INTERNAL NEGATIVE QC NEG CLEAR BACKGROUND; PREG INTERNAL POSITIVE QC POS CONTROL LINE
[2016-08-08] MEDS ORDERED: ACETAMINOPHEN 500 MG TAB PO STA (13:10)
[2016-08-08 14:44] VITALS: BP 124/99; PULSE 79; TEMP 36.7; O2SAT 97
== END 2016-08-08 14:45 | disposition home or self-care (01) ==
LOC: EDBD 10:37 → C.EDC 10:38
DX: R55 Syncope and collapse (principal); S09.90XA Unspecified injury of head, initial encounter; E86.0 Dehydration; W19.XXXA Unspecified fall, initial encounter; W22.8XXA Striking against or struck by other objects, initial encounter; E11.9 Type 2 diabetes mellitus without complications; K21.9 Gastro-esophageal reflux disease without esophagitis; F17.200 Nicotine dependence, unspecified, uncomplicated; Z90.3 Acquired absence of stomach [part of]; Z79.4 Long term (current) use of insulin; Z79.899 Other long term (current) drug therapy